=== PATIENT | female | born 1995 | race African-American/Black ===

== ENCOUNTER 2017-05-03 20:36 | Emergency (ER) | payer OTHER ==
[~2017-05-03] VITALS: Ht 162.6 cm; Wt 68.0 kg
--- NOTE | 2017-05-03 21:35 | PHYS DOC ---
Past Medical History Past Medical History: No Pertinent History Past Surgical History: No Surgical History, Tonsillectomy Alcohol Use: None Drug Use: None Adult General Chief Complaint Chief Complaint: ABDOMINAL PAIN IN HPI HPI Patient is a 21 year old F who presents with right lower quadrant pain for the past day. Patient states she is approximately 16 weeks' and developed right lower quadrant pain for the past day. Patient denies any fevers. Patient denies vomiting but has nausea which she attributes to her usual nausea. Patient denies any diarrhea or dysuria. Patient denies any vaginal discharge or bleeding. Patient states that for us far and the she has had no complications such as preeclampsia, gestational diabetes, gestational hypertension. Patient had a previous ultrasound to confirm intrauterine . Patient has no other complaints. Review of Systems Review of Systems GEN: Denies fevers, chills, sweats HEENT: Denies blurred vision, sore throat CV: Denies chest pain RESP: Denies shortness of air, cough GI: Right lower quadrant abdominal pain with nausea NEURO: Denies confusion, dizziness MSK: Denies weakness, joint pain/swelling Allergies Allergies Allergies Coded Allergies Type Severity Reaction Last Updated Verified Penicillins Allergy Unknown 05/03/17 Yes Physical Exam Physical Exam GEN.: No apparent distress. Alert and oriented. HEENT: Head is normocephalic, atraumatic NECK: Supple. LUNGS: CTAB. HEART: RRR, S1, S2 present. Peripheral pulses intact ABDOMEN: Soft, positive tenderness palpation to the right lower quadrant with rebound tenderness, no guarding, gravid uterus. Positive bowel sounds. EXTREMITIES: Without any cyanosis. NEUROLOGIC: Normal speech, normal tone PSYCHIATRIC: Normal affect, normal mood. SKIN: No ulcerations Current Patient Data Vital Signs Vital Signs Date Time Temp Pulse Resp B/P (MAP) Pulse Ox O2 Delivery O2 Flow Rate FiO2 05/03/17 20:51 98.5 71 18 118/65 (82) 100 Room Air 98.5 Lab Values Laboratory Tests Test 05/03/17 20:45 05/03/17 21:40 Urine Collection Type Unknown Urine Color Yellow Urine Clarity Clear Urine pH 6.5 Urine Specific [place] 1.015 Urine Protein Negative mg/dL (NEG-TRACE) Urine Glucose (UA) Negative mg/dL (NEG) Urine Ketones (Stick) Negative mg/dL (NEG) Urine Blood Negative (NEG) Urine Nitrite Positive (NEG) Urine Bilirubin Negative (NEG) Urine Urobilinogen Dipstick 1.0 mg/dL (0.2 mg/dL) Urine Leukocyte Esterase Moderate (NEG) Urine RBC 3-5 /HPF (0-2) Urine WBC 20-40 /HPF (0-4) Urine Squamous Epithelial Cells Few /LPF Urine Bacteria Many /HPF (0-FEW) Urine Mucus Mod /LPF White Blood Count 8.8 x10^3/uL (4.0-11.0) Red Blood Count 3.92 x10^6/uL (3.50-5.40) Hemoglobin 11.0 g/dL (12.0-15.5) L Hematocrit 32.2 % (36.0-47.0) L Mean Corpuscular Volume 82 fL (79-100) Mean Corpuscular Hemoglobin 28 pg (25-35) Mean Corpuscular Hemoglobin Concent 34 g/dL (31-37) Red Cell Distribution Width 15.2 % (11.5-14.5) H Platelet Count 181 x10^3/uL (140-400) Neutrophils (%) (Auto) 78 % (31-73) H Lymphocytes (%) (Auto) 16 % (24-48) L Monocytes (%) (Auto) 5 % (0-9) Eosinophils (%) (Auto) 1 % (0-3) Basophils (%) (Auto) 1 % (0-3) Neutrophils # (Auto) 6.9 x10^3uL (1.8-7.7) Lymphocytes # (Auto) 1.4 x10^3/uL (1.0-4.8) Monocytes # (Auto) 0.4 x10^3/uL (0.0-1.1) Eosinophils # (Auto) 0.0 x10^3/uL (0.0-0.7) Basophils # (Auto) 0.1 x10^3/uL (0.0-0.2) Sodium Level 136 mmol/L (136-145) Potassium Level 3.4 mmol/L (3.5-5.1) L Chloride Level 103 mmol/L (98-107) Carbon Dioxide Level 24 mmol/L (21-32) Anion Gap 9 (6-14) Blood Urea Nitrogen 5 mg/dL (7-20) L Creatinine 0.6 mg/dL (0.6-1.0) Estimated GFR (Cockcroft-Gault) 154.2 BUN/Creatinine Ratio 8 (6-20) Glucose Level 92 mg/dL (70-99) Calcium Level 9.1 mg/dL (8.5-10.1) Total Bilirubin 0.2 mg/dL (0.2-1.0) Aspartate Amino Transferase (AST) 16 U/L (15-37) Alanine Aminotransferase (ALT) 17 U/L (14-59) Alkaline Phosphatase 61 U/L (46-116) Total Protein 7.2 g/dL (6.4-8.2) Albumin 3.2 g/dL (3.4-5.0) L Albumin/Globulin Ratio 0.8 (1.0-1.7) L Lipase 179 U/L (73-393) Laboratory Tests 05/03/17 21:40 Laboratory Tests 05/03/17 21:40 EKG EKG [] Radiology/Procedures Radiology/Procedures Ultrasound right lower quadrant: Unable to visualize the appendix, heart tones 158[] Course & Med Decision Making Course & Med Decision Making Pertinent Labs and Imaging studies reviewed. (See chart for details) ED course: Patient was seen and examined emergency room CBC, CMP, UA, ultrasound right lower quadrant was ordered 2308: Updated the patient on ultrasound results and UA results. Explained to the patient she has a UTI. A long discussion with the patient and family about the possibility of having early appendicitis. Explained to the patient that the ultrasound was unable to visualize the appendix so we cannot 100 percent rule out acute appendicitis however her white count is normal and she does have a positive UTI. Since the patient is I did not recommend getting a CT scan at this time. I gave the patient 2 options, option one was to be admitted to the hospital and be reevaluated in the morning with a repeat CBC abdominal exam or to be discharged home on antibiotics for UTI and follow-up with her OB/ RENTAL SALES REPRESENTATIVE or family doctor tomorrow for repeat abdominal exam. After a discussion with the patient in regards to pros and cons and the risks of having acute appendicitis during the patient is decided to go home and follow-up with her doctor tomorrow. Patient understands all the risks including and disability. Patient and family are comfortable being discharged. [] Dragon Disclaimer Dragon Disclaimer This electronic medical record was generated, in whole or in part, using a voice recognition dictation system. Departure Departure Impression: Primary Impression: Right lower quadrant abdominal pain Additional Impression: UTI (urinary tract infection) Disposition: HOME, SELF-CARE Condition: IMPROVED Referrals: NO PCP (PCP) Patient Instructions: Abdominal Pain, Possible Early Appendicitis, Urinary Tract Infection, [id number] Additional Instructions: Please follow-up with your INSTRUCTIONAL FACILITATOR or your family doctor tomorrow for repeat lab work and abdominal exam Scripts Nitrofurantoin Monohyd/M-Cryst (MACROBID 100 MG CAPSULE) 100 Mg Capsule 1 CAP PO BID, #14 CAP Prov: MALORIE ERNANDEZ DO 05/03/17 Problem Qualifiers MALORIE ERNANDEZ DO May 03, 2017 21:35
[2017-05-03 21:38] LABS: BILIRUBIN,URINE NEGATIVE (NEG); GLUCOSE,URINE NEGATIVE (NEG); NITRITE,URINE POSITIVE (NEG); PH,URINE 6.5; PROTEIN,URINE NEGATIVE (NEG-TRACE)
[2017-05-03 21:48] LABS: BASO # 0.1 x10^3/uL (0.0-0.2); BASO % 1 % (0-3); EOS % 1 % (0-3); HEMATOCRIT 32.2 % (36.0-47.0); LYMPH # 1.4 x10^3/uL (1.0-4.8); LYMPH % 16 % (24-48); MEAN CORPUSCULAR HEMOGLOBIN 28 pg (25-35); MEAN CORPUSCULAR HGB CONC 34 g/dL (31-37); MEAN CORPUSCULAR VOLUME 82 fL (79-100); MONO % 5 % (0-9); NEUT % 78 % (31-73); PLATELET COUNT 181 x10^3/uL (140-400); RED BLOOD COUNT 3.92 x10^6/uL (3.50-5.40); RED CELL DISTRIBUTION WIDTH 15.2 % (11.5-14.5); WHITE BLOOD COUNT 8.8 x10^3/uL (4.0-11.0)
[2017-05-03 21:50] LABS: BACTERIA,URINE MANY /HPF (0-FEW); SQUAMOUS EPITHELIAL CELL,UR FEW /LPF; WBC,URINE 20-40 /HPF (0-4)
[2017-05-03 21:59] LABS: CALCIUM 9.1 mg/dL (8.5-10.1); CREATININE 0.6 mg/dL (0.6-1.0); GFR 154.2; POTASSIUM 3.4 mmol/L (3.5-5.1)
[2017-05-03 22:04] LABS: ALBUMIN 3.2 g/dL (3.4-5.0); ALBUMIN/GLOBULIN RATIO 0.8 (1.0-1.7); TOTAL BILIRUBIN 0.2 mg/dL (0.2-1.0); TOTAL PROTEIN 7.2 g/dL (6.4-8.2)
--- NOTE | 2017-05-03 22:23 | RAD ---
INDICATION: 16 weeks . Right lower quadrant pain. No bowel movement in a week. TECHNIQUE: Limited abdominal ultrasound was performed. FINDINGS: The appendix is not visualized. There may be increased bowel gas in the right lower quadrant. heart tones are 152 bpm. IMPRESSION: Nonvisualized appendix. Absence of visualization of the appendix does not exclude appendicitis. Electronically signed by: Bruno Casas MD (05/03/2017 10:20 PM) [facility]
[2017-05-03 22:51] VITALS: BP 109/71
[2017-05-03] MEDS ORDERED: NITR100C62 PO (23:16)
== END 2017-05-03 23:20 | disposition home or self-care (01) ==
LOC: ER 20:36
DX: O23.42 Unspecified infection of urinary tract in pregnancy, second trimester (principal); Z3A.16 16 weeks gestation of pregnancy; Z88.0 Allergy status to penicillin
CPT/HCPCS: 36415; 76857; 80053; 81001; 83690; 85025; 87086; 87186; 99285-25

== ENCOUNTER 2017-06-27 13:16 | Emergency (ER) | payer OTHER ==
[~2017-06-27 13:16] MED LIST: NITR100C62 PO
[2017-06-27 13:22] VITALS: BP 120/60
--- NOTE | 2017-06-27 13:47 | PHYS DOC ---
Past Medical History Past Medical History: No Pertinent History Past Surgical History: No Surgical History, Tonsillectomy Alcohol Use: None Drug Use: None Adult General Chief Complaint Chief Complaint: VAGINAL PROBLEM HPI HPI Patient is a 21 year old female 24 weeks presents the ED complaining of vaginal discharge 2 days. Patient states she was recently treated for BV with topical flagyl at her OB/GYNs office. States she has had some itching and discharge since then and no improvement. States that it is white and creamy. Denies abdominal pain, vaginal bleeding, STD exposure, dysuria, back pain, fever , nausea/vomiting, chest pain or shortness of breath. Review of Systems Review of Systems Constitutional: Denies fever or chills [] Eyes: Denies change in visual acuity, redness, or eye pain [] HENT: Denies nasal congestion or sore throat [] Respiratory: Denies cough or shortness of breath [] Cardiovascular: No additional information not addressed in HPI [] GI: Denies abdominal pain, nausea, vomiting, bloody stools or diarrhea [] : Complains of vaginal discharge. Denies dysuria or hematuria [] Musculoskeletal: Denies back pain or joint pain [] Integument: Denies rash or skin lesions [] Neurologic: Denies headache, focal weakness or sensory changes [] Endocrine: Denies polyuria or polydipsia [] All other systems were reviewed and found to be within normal limits, except as documented in this note. Allergies Allergies Allergies Coded Allergies Type Severity Reaction Last Updated Verified Penicillins Allergy Unknown 05/03/17 Yes Physical Exam Physical Exam Constitutional: Well developed, well nourished, no acute distress, non-toxic appearance. [] HENT: Normocephalic, atraumatic, bilateral external ears normal, oropharynx moist, no oral exudates, nose normal. [] Eyes: PERRLA, EOMI, conjunctiva normal, no discharge. [] Neck: Normal range of motion, no tenderness, supple, no stridor. [] Cardiovascular:Heart rate regular rhythm, no murmur [] Lungs & Thorax: Bilateral breath sounds clear to auscultation [] Abdomen: Bowel sounds normal, soft, no tenderness, no masses, no pulsatile masses. [] EXAM: Normal cervix, OS closed, White, creamy, vaginal discharge. Skin: Warm, dry, no erythema, no rash. [] Back: No tenderness, no CVA tenderness. [] Extremities: No tenderness, no cyanosis, no clubbing, ROM intact, no edema. [] Neurologic: Alert and oriented X 3, normal motor function, normal sensory function, no focal deficits noted. [] Psychologic: Affect normal, judgement normal, mood normal. [] Current Patient Data Vital Signs Vital Signs Date Time Temp Pulse Resp B/P (MAP) Pulse Ox O2 Delivery O2 Flow Rate FiO2 06/27/17 13:22 97.9 85 16 100 Room Air 97.9 Lab Values Laboratory Tests Test 06/27/17 13:35 06/27/17 15:00 Urine Color Yellow Urine Clarity Clear Urine pH 6.5 Urine Specific [place] 1.015 Urine Protein Negative mg/dL (NEG-TRACE) Urine Glucose (UA) Negative mg/dL (NEG) Urine Ketones (Stick) Negative mg/dL (NEG) Urine Blood Negative (NEG) Urine Nitrite Negative (NEG) Urine Bilirubin Negative (NEG) Urine Urobilinogen Dipstick 1.0 mg/dL (0.2 mg/dL) Urine Leukocyte Esterase Trace (NEG) Urine RBC 0 /HPF (0-2) Urine WBC 1-4 /HPF (0-4) Urine Squamous Epithelial Cells Occ /LPF Urine Bacteria Few /HPF (0-FEW) Urine Mucus Mod /LPF Urine Chlamydia DNA (PCR) Negative (Negative) Neisseria gonorrhoeae DNA (PCR) Negative (Negative) Chlamydia DNA Probe Negative (Negative) Neisseria gonorrhoeae DNA Probe Negative (Negative) Microbiology 06/27/17 Wet Prep - Final, Complete 06/27/17 Urine Culture - Final, Complete 06/27/17 Urine Culture Result 1 (MAIRA) - Final, Complete Laboratory Tests Test 06/27/17 13:35 Urine Color Yellow Urine Clarity Clear Urine pH 6.5 Urine Specific [place] 1.015 Urine Protein Negative mg/dL (NEG-TRACE) Urine Glucose (UA) Negative mg/dL (NEG) Urine Ketones (Stick) Negative mg/dL (NEG) Urine Blood Negative (NEG) Urine Nitrite Negative (NEG) Urine Bilirubin Negative (NEG) Urine Urobilinogen Dipstick 1.0 mg/dL (0.2 mg/dL) Urine Leukocyte Esterase Trace (NEG) Urine RBC 0 /HPF (0-2) Urine WBC 1-4 /HPF (0-4) Urine Squamous Epithelial Cells Occ /LPF Urine Bacteria Few /HPF (0-FEW) Urine Mucus Mod /LPF Microbiology 06/27/17 Wet Prep - Final, Complete EKG EKG [] Radiology/Procedures Radiology/Procedures [] Course & Med Decision Making Course & Med Decision Making Pertinent Labs and Imaging studies reviewed. (See chart for details) []On, re-examination, abdomen is soft nontender nondistended. No peritoneal signs. Tolerating by mouth. Cervix normal, OS closed. No related symptoms at this time. Will treat for bacterial vaginosis and Trichomonas with Flagyl. Patient prescribed Flagyl. GC swab pending. Staff will follow culture results. Discussed the importance of follow-up with DEBT COUNSELOR this week. States she already has an appointment for later this week. Discussed safe sex practice. Discussed reasons to return to the ED. Patient understands and agrees with plan. Dragon Disclaimer Dragon Disclaimer This electronic medical record was generated, in whole or in part, using a voice recognition dictation system. Departure Departure Impression: Primary Impression: Trichimoniasis Additional Impression: Bacterial vaginosis Disposition: 01 HOME, SELF-CARE Condition: IMPROVED Referrals: NO PCP (PCP) AURELIA GRANDA Jr, MD Patient Instructions: Bacterial Vaginosis, Sexually Transmitted Diseases (STD) In , Trichomoniasis Scripts Metronidazole (FLAGYL) 500 Mg Tablet 500 MG PO BID for 7 Days, #14 TAB Prov: JORGE CARUSO 06/27/17 Problem Qualifiers JORGE CARUSO Jun 27, 2017 13:47
[2017-06-27 13:56] LABS: BILIRUBIN,URINE NEGATIVE (NEG); GLUCOSE,URINE NEGATIVE (NEG); NITRITE,URINE NEGATIVE (NEG); PH,URINE 6.5; PROTEIN,URINE NEGATIVE (NEG-TRACE)
[2017-06-27 14:26] LABS: BACTERIA,URINE FEW /HPF (0-FEW); RBC,URINE 0 /HPF (0-2); SQUAMOUS EPITHELIAL CELL,UR OCC /LPF
[2017-06-27] MEDS ORDERED: METR500T PO (15:27)
== END 2017-06-27 16:30 | disposition home or self-care (01) ==
LOC: ER 13:16
DX: O23.592 Infection of other part of genital tract in pregnancy, second trimester (principal); N76.0 Acute vaginitis; A59.9 Trichomoniasis, unspecified; Z3A.24 24 weeks gestation of pregnancy; Z88.0 Allergy status to penicillin
CPT/HCPCS: 81001; 87086; 87491; 87591; 99284; Q0111

== ENCOUNTER 2017-08-01 07:02 | Emergency (ER) | payer OTHER ==
[2017-08-01 07:24] LABS: URINE HCG POC HCG POSITIVE (Negative)
[2017-08-01] MEDS: IV NORMAL SALINE 1000ML BAG 1,000 ML IV (07:33)
[2017-08-01] MEDS: ONDANSETRON PF 4 MG/2 ML VIAL. IV (07:36)
[2017-08-01 07:37] LABS: BILIRUBIN,URINE NEGATIVE (NEG); GLUCOSE,URINE NEGATIVE (NEG); NITRITE,URINE NEGATIVE (NEG); PROTEIN,URINE 30 mg/dL (NEG-TRACE)
[2017-08-01 07:55] LABS: BACTERIA,URINE MANY /HPF (0-FEW); SQUAMOUS EPITHELIAL CELL,UR MANY /LPF; WBC,URINE >40 /HPF (0-4)
[2017-08-01 07:56] LABS: RBC,URINE FOBS /HPF (0-2)
== END 2017-08-01 08:43 | disposition home or self-care (01) ==
LOC: ER 07:02
DX: O21.0 Mild hyperemesis gravidarum (principal); O23.43 Unspecified infection of urinary tract in pregnancy, third trimester; Z3A.28 28 weeks gestation of pregnancy; Z88.0 Allergy status to penicillin
CPT/HCPCS: 81001; 81025; 96361; 96374; 99284-25; J2405; J7030

== ENCOUNTER 2017-08-13 19:14 | Emergency (ER) | payer OTHER ==
[2017-08-13 19:55] LABS: BILIRUBIN,URINE NEGATIVE (NEG); CLARITY,URINE CLEAR; COLOR,URINE YELLOW; GLUCOSE,URINE NEGATIVE (NEG); NITRITE,URINE NEGATIVE (NEG); PH,URINE 6.5; PROTEIN,URINE NEGATIVE (NEG-TRACE)
[2017-08-13 19:57] LABS: ADD MAN DIFF? NO
[2017-08-13 20:02] LABS: BACTERIA,URINE FEW /HPF (0-FEW); RBC,URINE 0 /HPF (0-2); SQUAMOUS EPITHELIAL CELL,UR FEW /LPF; WBC,URINE OCC /HPF (0-4)
[2017-08-13 20:03] LABS: BASO % 0 % (0-3); EOS # 0.1 x10^3/uL (0.0-0.7); EOS % 1 % (0-3); HEMATOCRIT 30.8 % (36.0-47.0); HEMOGLOBIN 10.4 g/dL (12.0-15.5); LYMPH # 1.8 x10^3/uL (1.0-4.8); LYMPH % 18 % (24-48); MEAN CORPUSCULAR HEMOGLOBIN 28 pg (25-35); MEAN CORPUSCULAR HGB CONC 34 g/dL (31-37); MEAN CORPUSCULAR VOLUME 82 fL (79-100); MONO # 0.6 x10^3/uL (0.0-1.1); MONO % 6 % (0-9); NEUT # 7.6 x10^3uL (1.8-7.7); NEUT % 75 % (31-73); PLATELET COUNT 230 x10^3/uL (140-400); RED BLOOD COUNT 3.76 x10^6/uL (3.50-5.40); RED CELL DISTRIBUTION WIDTH 13.8 % (11.5-14.5); WHITE BLOOD COUNT 10.1 x10^3/uL (4.0-11.0)
[2017-08-13 20:16] LABS: ANION GAP 14 (6-14); BLOOD UREA NITROGEN 6 mg/dL (7-20); BUN/CREATININE RATIO 12 (6-20); CALCIUM 9.1 mg/dL (8.5-10.1); CARBON DIOXIDE 24 mmol/L (21-32); CHLORIDE 101 mmol/L (98-107); CREATININE 0.5 mg/dL (0.6-1.0); GFR 190.3; GLUCOSE 94 mg/dL (70-99); POTASSIUM 3.7 mmol/L (3.5-5.1); SODIUM 139 mmol/L (136-145)
[2017-08-13 20:22] LABS: ALBUMIN 2.9 g/dL (3.4-5.0); ALBUMIN/GLOBULIN RATIO 0.7 (1.0-1.7); ALK PHOS 86 U/L (46-116); ALT (SGPT) 15 U/L (14-59); AST (SGOT) 17 U/L (15-37); TOTAL BILIRUBIN 0.2 mg/dL (0.2-1.0); TOTAL PROTEIN 7.3 g/dL (6.4-8.2)
== END 2017-08-13 20:43 | disposition home or self-care (01) ==
LOC: ER 19:14
DX: O26.893 Other specified pregnancy related conditions, third trimester (principal); L29.8 Other pruritus; R45.4 Irritability and anger; Z3A.30 30 weeks gestation of pregnancy; Z88.0 Allergy status to penicillin
CPT/HCPCS: 36415; 80053; 81001; 85025; 99284

== ENCOUNTER 2017-08-22 14:53 | Observation (INO) | payer OTHER ==
[2017-08-22] MEDS ORDERED: IV RINGERS,LACTATED 1000ML 1,000 ML IV (16:00)
[2017-08-22 16:38] LABS: BILIRUBIN,URINE NEGATIVE (NEG); CLARITY,URINE CLOUDY; COLOR,URINE YELLOW; GLUCOSE,URINE NEGATIVE (NEG); NITRITE,URINE POSITIVE (NEG); PROTEIN,URINE NEGATIVE (NEG-TRACE)
[2017-08-22 16:45] LABS: BARBITURATES NEG (NEG); BENZODIAZEPINES NEG (NEG); CANNABINOIDS NEG (NEG); COCAINE NEG (NEG); METHADONE NEG (NEG); OPIATES NEG (NEG); PHENCYCLIDINE NEG (NEG)
[2017-08-22 16:49] LABS: AMPHETAMINE/METHAMPHETAMINE NEG (NEG); ETHANOL, URINE NEG (NEG)
[2017-08-22 16:52] LABS: BACTERIA,URINE MANY /HPF (0-FEW); RBC,URINE 0 /HPF (0-2)
[2017-08-22 16:53] LABS: SQUAMOUS EPITHELIAL CELL,UR FEW /LPF
[2017-08-22] MEDS: DOCUSATE SODIUM 283 MG/5 ML ENEMA. PR (17:27)
== END 2017-08-22 17:50 | disposition home or self-care (01) ==
LOC: 3 SO LND 14:53
DX: O26.893 Other specified pregnancy related conditions, third trimester (principal); R10.31 Right lower quadrant pain; Z3A.31 31 weeks gestation of pregnancy
CPT/HCPCS: 59025; 80307; 81001; 87086; G0378; G0379

== ENCOUNTER 2017-12-08 22:53 | Emergency (ER) | payer OTHER ==
[2017-12-08 23:47] LABS: URINE HCG POC HCG NEGATIVE (Negative)
[2017-12-09 00:06] LABS: ADD MAN DIFF? NO
[2017-12-09 00:08] LABS: BASO # 0.1 x10^3/uL (0.0-0.2); BASO % 1 % (0-3); EOS # 0.1 x10^3/uL (0.0-0.7); EOS % 1 % (0-3); HEMATOCRIT 36.9 % (36.0-47.0); HEMOGLOBIN 12.7 g/dL (12.0-15.5); LYMPH # 2.3 x10^3/uL (1.0-4.8); LYMPH % 36 % (24-48); MEAN CORPUSCULAR HEMOGLOBIN 27 pg (25-35); MEAN CORPUSCULAR HGB CONC 34 g/dL (31-37); MEAN CORPUSCULAR VOLUME 79 fL (79-100); MONO # 0.4 x10^3/uL (0.0-1.1); MONO % 6 % (0-9); NEUT # 3.6 x10^3uL (1.8-7.7); NEUT % 56 % (31-73); PLATELET COUNT 235 x10^3/uL (140-400); RED BLOOD COUNT 4.65 x10^6/uL (3.50-5.40); RED CELL DISTRIBUTION WIDTH 17.2 % (11.5-14.5); WHITE BLOOD COUNT 6.5 x10^3/uL (4.0-11.0)
[2017-12-09 00:09] LABS: BILIRUBIN,URINE NEGATIVE (NEG); CLARITY,URINE CLOUDY; COLOR,URINE YELLOW; GLUCOSE,URINE NEGATIVE (NEG); NITRITE,URINE NEGATIVE (NEG); PH,URINE 7.5; PROTEIN,URINE NEGATIVE (NEG-TRACE)
[2017-12-09] MEDS: KETOROLAC 30 MG/ML INJ. IV (00:12)
[2017-12-09 00:16] LABS: BACTERIA,URINE 0 /HPF (0-FEW); RBC,URINE 0 /HPF (0-2); SQUAMOUS EPITHELIAL CELL,UR FEW /LPF; WBC,URINE OCC /HPF (0-4)
[2017-12-09 00:21] LABS: ANION GAP 9 (6-14); BLOOD UREA NITROGEN 11 mg/dL (7-20); BUN/CREATININE RATIO 11 (6-20); CARBON DIOXIDE 28 mmol/L (21-32); CHLORIDE 104 mmol/L (98-107); GFR 84.7; GLUCOSE 93 mg/dL (70-99); SODIUM 141 mmol/L (136-145)
[2017-12-09 00:26] LABS: ALBUMIN 3.8 g/dL (3.4-5.0); ALBUMIN/GLOBULIN RATIO 0.9 (1.0-1.7); ALK PHOS 68 U/L (46-116); ALT (SGPT) 20 U/L (14-59); AST (SGOT) 19 U/L (15-37); LIPASE 182 U/L (73-393); TOTAL BILIRUBIN 0.3 mg/dL (0.2-1.0)
== END 2017-12-09 00:50 | disposition home or self-care (01) ==
LOC: ER 12-09 00:50
DX: R10.9 Unspecified abdominal pain (principal); Z88.0 Allergy status to penicillin
CPT/HCPCS: 36415; 80053; 81001; 81025; 83690; 85025; 96374; 99284-25; J1885

== ENCOUNTER 2018-10-11 23:23 | Emergency (ER) | payer BC, OTHER ==
[~2018-10-11] VITALS: Ht 162.6 cm; Wt 74.4 kg
[~2018-10-11 23:23] MED LIST changes: +IBUP-1060 PO; +METR500T PO; +ONDA4TAB10 SL
[2018-10-12] MEDS ORDERED: KETOROLAC 15 MG/ML VIAL. IV ONE (00:30)
[2018-10-12] MEDS ORDERED: DEXAMETHASONE SOD PHOS 20 MG/5 ML VIAL. IV ONE (00:30)
--- NOTE | 2018-10-12 00:50 | PHYS DOC ---
Past Medical History Past Medical History: No Pertinent History Past Surgical History: No Surgical History Additional Information: nonsmoker Alcohol Use: None Drug Use: None Adult General Chief Complaint Chief Complaint: CHEST PAIN HPI HPI 23 y/o female presents with 3 week history of intermittent chest pain. No reported cardiac risk factors. Patient denies history or family history of PE/ DVT. Denies leg swelling of calf tenderness. Denies trauma. Denies . Reports pain worse with deep inspiration. Review of Systems Review of Systems Constitutional: Denies fever or chills [] Eyes: Denies change in visual acuity, redness, or eye pain [] HENT: Denies nasal congestion or sore throat [] Respiratory: Denies cough or shortness of breath [] Cardiovascular: Reports substernal chest pain which is worse with deep inspiration GI: Denies abdominal pain, nausea, vomiting, or diarrhea [] : Denies dysuria or hematuria [] Musculoskeletal: Denies back pain or joint pain [] Integument: Denies rash or skin lesions [] Neurologic: Denies headache, focal weakness or sensory changes [] Complete systems were reviewed and found to be within normal limits, except as documented in this note. Current Medications Current Medications Current Medications Medications (Trade) Dose Ordered Sig/Madelyn Start Time Stop Time Status Last Admin Dose Admin Dexamethasone Sodium Phosphate (Decadron) 10 mg 1X ONCE 10/12/18 00:30 10/12/18 00:31 DC 10/12/18 01:05 10 MG Ketorolac Tromethamine (Toradol 15mg Vial) 15 mg 1X ONCE 10/12/18 00:30 10/12/18 00:31 DC 10/12/18 01:05 15 MG Allergies Allergies Allergies Coded Allergies Type Severity Reaction Last Updated Verified Penicillins Allergy Unknown 05/03/17 Yes Physical Exam Physical Exam Constitutional: Well developed, well nourished, no acute distress, non-toxic appearance. [] HENT: Normocephalic, atraumatic oropharynx moist Eyes: Conjunctiva normal, no discharge. [] Neck: Normal range of motion, no tenderness, supple, no stridor. [] Cardiovascular: Heart rate regular rhythm, no murmur [] Lungs & Thorax: Bilateral breath sounds clear to auscultation [] Abdomen: Soft, no tenderness Skin: Warm, dry, no erythema, no rash. [] Extremities: No calves tenderness,ROM intact, no edema. [] Neurologic: Alert and oriented X 3, normal motor function, normal sensory function, no focal deficits noted. [] Psychologic: Affect anxious, judgement normal[] Current Patient Data Vital Signs Vital Signs Date Time Temp Pulse Resp B/P (MAP) Pulse Ox O2 Delivery O2 Flow Rate FiO2 10/12/18 01:13 62 19 103/62 (76) 99 Room Air 10/11/18 23:25 98.8 98.8 Lab Values Laboratory Tests Test 10/11/18 23:46 POC Urine HCG, Qualitative Hcg negative (Negative) EKG EKG @2329 NSR at 70bpm, NO ST elevation, nonspecific t wave inversion V2 Radiology/Procedures Radiology/Procedures PROCEDURE: CHEST PA & LATERAL Two-view chest dated 10/12/2018. No comparison available. Clinical data indication: Chest pain. FINDINGS: PA and lateral views obtained. Heart and mediastinal contours within normal limits. Lungs are clear without focal consolidation. Vascular interstitium within normal limits. No pleural effusion or pneumothorax. IMPRESSION: No acute radiographic abnormality. Electronically signed by: Allen Guillermo MD (10/12/2018 2:37 AM) [facility] Course & Med Decision Making Course & Med Decision Making Pertinent Labs and Imaging studies reviewed. (See chart for details) Patient with no cardiac risk factors at age 23 presents with report of 3 week history of pleuritic chest pain. PERC negative. CXR without acute process. EKG stable. Symptomatic treatment provided. Patient stable for discharge home with outpatient follow-up with PCP. Discussed findings an plan with patient, who acknowledge understanding and agreement. Dragon Disclaimer Dragjaya Disclaimer This electronic medical record was generated, in whole or in part, using a voice recognition dictation system. Departure Departure Impression: Primary Impression: Atypical chest pain Disposition: HOME, SELF-CARE Condition: STABLE Referrals: NO PCP (PCP) Patient Instructions: Chest Pain (Nonspecific), [id number] Additional Instructions: Continue over the counter Tylenol and Ibuprofen for pain or discomfort. ALLEN POWELL DO Oct 12, 2018 00:50
[2018-10-12 01:13] VITALS: BP 103/62
--- NOTE | 2018-10-12 02:40 | RAD ---
Two-view chest dated 10/12/2018. No comparison available. Clinical data indication: Chest pain. FINDINGS: PA and lateral views obtained. Heart and mediastinal contours within normal limits. Lungs are clear without focal consolidation. Vascular interstitium within normal limits. No pleural effusion or pneumothorax. IMPRESSION: No acute radiographic abnormality. Electronically signed by: Allen Guillermo MD (10/12/2018 2:37 AM) [facility]
--- NOTE | 2018-10-12 06:50 | EKG ---
[facility] [address] [place] [address] Test Date: 2018-10-11 Test Time: 23:29:45 Pat Name: NIKHIL AREVALO Department: Room: Gender: F Human Resources Department Supervisor: : 1995 Requested By: SO POWELL Order Number: [id number] Reading MD: Ramin Thompson MD Measurements Intervals [place] Rate: 70 P: 31 NC: 158 QRS: 86 QRSD: 84 T: 55 QT: 358 QTc: 389 Interpretive Statements SINUS RHYTHM NON-SPECIFIC ST/T CHANGES Electronically Signed On 10-12-2018 11:24:03 [employer] by Ramin Thompson MD
== END 2018-10-12 01:20 | disposition home or self-care (01) ==
LOC: ER 23:23
DX: R07.89 Other chest pain (principal); Z88.0 Allergy status to penicillin
CPT/HCPCS: 71046; 81025; 93005; 96374; 96375; 99283; J1100; J1885

== ENCOUNTER 2018-10-28 15:29 | Emergency (ER) | payer BC, OTHER ==
[~2018-10-28] VITALS: Ht 170.2 cm; Wt 74.4 kg
[2018-10-28 16:20] VITALS: BP 128/78
[2018-10-28] MEDS ORDERED: SUCR1TAB35 PO (16:59)
--- NOTE | 2018-10-28 16:59 | PHYS DOC ---
Past Medical History Past Medical History: No Pertinent History Past Surgical History: No Surgical History Alcohol Use: None Drug Use: None Adult General Chief Complaint Chief Complaint: OTHER COMPLAINTS [facility] Patient is a 23 year old female who presents with weeks to months of discomfort in her chest intermittently but lasting longer and longer each time. Worse with laying down, no worse with exertion. Mild to moderate in intensity. No radiation. No fever. No nausea or vomiting. Patient was evaluated for this approximately 2 weeks ago and discharged on the emergency department. Patient has not been to see her primary care physician since that visit.[] Review of Systems Review of Systems Constitutional: Denies fever or chills [] Eyes: Denies change in visual acuity, redness, or eye pain [] HENT: Denies nasal congestion or sore throat [] Respiratory: Denies cough or shortness of breath [] Cardiovascular: No additional information not addressed in HPI [] GI: Denies abdominal pain, nausea, vomiting, bloody stools or diarrhea [] : Denies dysuria or hematuria [] Musculoskeletal: Denies back pain or joint pain [] Integument: Denies rash or skin lesions [] Neurologic: Denies headache, focal weakness or sensory changes [] Endocrine: Denies polyuria or polydipsia [] All other systems were reviewed and found to be within normal limits, except as documented in this note. Allergies Allergies Allergies Coded Allergies Type Severity Reaction Last Updated Verified Penicillins Allergy Unknown 05/03/17 Yes Physical Exam Physical Exam Constitutional: Well developed, well nourished, no acute distress, non-toxic appearance. [] HENT: Normocephalic, atraumatic, bilateral external ears normal, oropharynx moist, no oral exudates, nose normal. [] Eyes: PERRLA, EOMI, conjunctiva normal, no discharge. [] Neck: Normal range of motion, no tenderness, supple, no stridor. [] Cardiovascular:Heart rate regular rhythm, no murmur [] Lungs & Thorax: Bilateral breath sounds clear to auscultation [] Abdomen: Bowel sounds normal, soft, no tenderness, no masses, no pulsatile masses. [] Skin: Warm, dry, no erythema, no rash. [] Back: No tenderness, no CVA tenderness. [] Extremities: No tenderness, no cyanosis, no clubbing, ROM intact, no edema. [] Neurologic: Alert and oriented X 3, normal motor function, normal sensory function, no focal deficits noted. [] Psychologic: Affect normal, judgement normal, mood normal. [] Current Patient Data Vital Signs Vital Signs Date Time Temp Pulse Resp B/P (MAP) Pulse Ox O2 Delivery O2 Flow Rate FiO2 10/28/18 16:20 98.3 84 16 128/78 (95) 99 Room Air 98.3 Lab Values Laboratory Tests Test 10/28/18 16:18 POC Urine HCG, Qualitative Hcg negative (Negative) EKG EKG [] Radiology/Procedures Radiology/Procedures [] Course & Med Decision Making Course & Med Decision Making Pertinent Labs and Imaging studies reviewed. (See chart for details) Medical decision making and ED course: Discussed concerns with the patient, she is concerned about possibility of an esophageal abnormality to include cancer. Patient has had no recent weight loss and no difficulty swallowing so do not feel that there is a high likelihood of a significant esophageal abnormality. Given that she was worked up from a cardiac standpoint several weeks ago and her symptoms do not sound cardiac at this time, denied believe that repeating of those tests would be of diagnostic utility at this time. We will attempt to treat for reflux disease and have patient follow-up with a primary care physician and GI.[] Dragon Disclaimer Dragon Disclaimer This electronic medical record was generated, in whole or in part, using a voice recognition dictation system. Departure Departure Impression: Primary Impression: Esophageal pain Disposition: 01 HOME, SELF-CARE Condition: IMPROVED Referrals: NO PCP (PCP) ANTHONY SOSA MD Patient Instructions: Diet for Gastroesophageal Reflux Disease, Adult, Gastroesophageal Reflux Disease, Adult Additional Instructions: Follow-up with your regular doctor, if you do not have regular doctor a list of local clinics will be provided for you. Return to the ER if worsening discomfort or any other concerns. Scripts Sucralfate (CARAFATE) 1 Gm Tablet 1 TAB PO QID, #60 TAB 1 Refill Prov: REMI NAIR DO 10/28/18 REMI NIAR DO Oct 28, 2018 16:59
== END 2018-10-28 17:14 | disposition home or self-care (01) ==
LOC: ER 15:29
DX: K22.8 Other specified diseases of esophagus (principal); R07.89 Other chest pain; Z88.0 Allergy status to penicillin
CPT/HCPCS: 81025; 99283